=== PATIENT | female | born 1970 | race Caucasian/White ===

== ENCOUNTER 2024-04-30 14:31 | Emergency (ER) | payer OTHER, SELFPAY ==
--- NOTE | 2024-04-30 16:27 | ER ---
Nurse's Notes [facility] Name: Fabiola Johnson Age: 53 yrs Sex: Female : 1970 Arrival Date: 04/30/2024 Time: 14:31 Bed 11 Private MD: Diagnosis: Local infection of the skin and subcutaneous tissue, unspecified-thumb Presentation: 04/30 14:37 Chief complaint: Patient states: she was bending a plastic credit card a week ago and kc6 thinks she has a piece of plastic stuck in her right thumb. reports continued pain and swelling. Coronavirus screen: At this time, the client does not indicate any symptoms associated with coronavirus-19. Ebola Screen: No symptoms or risks identified at this time. Initial Sepsis Screen: Does the patient meet any 2 criteria? No. Patient's initial sepsis screen is negative. Does the patient have a suspected source of infection? No. Patient's initial sepsis screen is negative. Risk Assessment: Do you want to hurt yourself or someone else? Patient reports no desire to harm self or others. Onset of symptoms was April 30, 2024. 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 - Infectious Disease History:: Denies. - Social history:: Smoking status: Patient reports the use of cigarette tobacco products, smokes one-half pack cigarettes per day. Screenin:35 [facility] ED Fall Risk Assessment (Adult) History of falling in the last 3 months, me1 including since admission No falls in past 3 months (0 pts) Confusion or Disorientation No (0 pts) Intoxicated or Sedated No (0 pts) Impaired Gait No (0 pts) Mobility Assist Device Used No (0 pt) Altered Elimination No (0 pt) Score/Fall Risk Level 0 - 2 = Low Risk Maintained a safe environment, Provided non-skid footwear, Hourly rounding (assess needs \T\ fall precautionary measures) done. Abuse screen: Denies threats or abuse. Nutritional screening: No deficits noted. Tuberculosis screening: No symptoms or risk factors identified. Assessment: 16:35 General: Appears uncomfortable, slender, well developed, Behavior is calm, cooperative, me1 appropriate for age, Reports she was bending a plastic credit card a week ago and thinks she has a piece of plastic stuck in her right thumb. reports continued pain and swelling. Pain: Complains of pain in palmar aspect of distal phalanx of right thumb Pain does not radiate. Pain currently is 4 out of 10 on a pain scale. Quality of pain is described as tender, throbbing, Pain began gradually, Is continuous. Neuro: Level of Consciousness is awake, alert, obeys commands, Oriented to person, place, time, situation, Appropriate for age. Cardiovascular: Patient's skin is warm and dry. Respiratory: Airway is patent Respiratory effort is even, unlabored, Respiratory pattern is regular, symmetrical. GI: No signs and/or symptoms were reported involving the gastrointestinal system. : No signs and/or symptoms were reported regarding the genitourinary system. EENT: No signs and/or symptoms were reported regarding the EENT system. Derm: Bruising that is dark purple, on palmar aspect of distal phalanx of right thumb swelling to pad of right thumb with redness noted. Musculoskeletal: Reports pain in palmar aspect of distal phalanx of right thumb. Injury Description: she was bending a plastic credit card a week ago and thinks she has a piece of plastic stuck in her right thumb. reports continued pain and swelling. Vital Signs: 14:37 BP 124 / 85; Pulse 74; Resp 17 S; Temp 97.3(TE); Pulse Ox 100% on R/A; Weight 47.63 kg kc6 (R); Height 5 ft. 3 in. (R); Pain 9/10; 16:46 BP 126 / 74; Pulse 68; Resp 15; Temp 98.3; Pulse Ox 100% ; me1 14:37 Body Mass Index 18.60 (47.63 kg, 160.02 cm) kc6 14:37 Pain Scale: Adult kc ED Course: 14:35 Patient arrived in ED. mg5 14:36 Romy Carvajal FNP-C is [facility]. kb 14:36 Bassam Bernal DO is Attending Physician. kb 14:40 Triage completed. kc6 14:40 Arm band placed on. kc6 15:05 Hand Right 3 View XRAY In Process Unspecified. EDMS 16:20 Patient placed in an exam room, on a stretcher. ll1 16:31 Jerilyn Miller, RN is Primary Nurse. me1 16:35 Patient has correct armband on for positive identification. Bed in low position. Call me1 light in reach. Provided Education on: POC. Verbalized understanding. . 16:35 No provider procedures requiring assistance completed. Patient did not have IV access me1 during this emergency room visit. Administered Medications: 16:35 Drug: Cephalexin PO 500 mg PO once Route: PO; me1 16:46 Follow up: Response: No adverse reaction me1 16:35 Drug: Doxycycline PO 100 mg PO once Route: PO; me1 16:46 Follow up: Response: No adverse reaction me1 Medication: 16:35 VIS not applicable for this client. me1 Outcome: 16:27 Discharge ordered by MD. kb 16:47 Discharged to home ambulatory, me1 16:47 Condition: stable 16:47 Discharge instructions given to patient, Instructed on discharge instructions, follow up and referral plans. medication usage, Demonstrated understanding of instructions, follow-up care, medications, Prescriptions given X 2, 16:47 Patient left the ED. me1 Signatures: Dispatcher [employer] [facility] Romy Carvajal FNP-C FNP-Cheryl Deshpande RN RN 1 Lynda Hair RN RN kc Jerilyn Miller RN RN ne1 [place] mg5 Corrections: (The following items were deleted from the chart) 16:35 14:37 Chief complaint: Patient states: she was bending a plastic credit card a week ago me1 and thinks she has a piece of plastic stuck in her right thumb. reports continued pain and swelling kc6
--- NOTE | 2024-04-30 16:28 | EDPHYS ---
Physician Documentation [facility] Name: Fabiola Johnson Age: 53 yrs Sex: Female : 1970 Arrival Date: 04/30/2024 Time: 14:31 Bed 11 Private MD: ED Physician Bassam Bernal HPI: 04/30 14:43 This 53 yrs old Female presents to ER via Ambulatory with complaints of Thumb Injury - kb Swelling. 14:43 Pt is a 53 year old female who presents for swelling, redness and pain to right thumb kb that started about a week ago when she broke a plastic card and it cut her. States she believes a piece of the card got stuck in her finger and is still there. . 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 - Infectious Disease History:: Denies. - Social history:: Smoking status: Patient reports the use of cigarette tobacco products, smokes one-half pack cigarettes per day. ROS: 14:42 Constitutional: As per HPI kb Exam: 14:42 Constitutional: This is a well developed, well nourished patient who is awake, alert, kb and in no acute distress. Head/Face: Normocephalic, atraumatic. ENT: Moist Mucous membranes Cardiovascular: Regular rate Respiratory: Respirations even and unlabored. No increased work of breathing. Talking in full sentences Abdomen/GI: Soft, non-tender. No distention MS/ Extremity: Pulses equal, no cyanosis. Neurovascular intact. Full, normal range of motion. Neuro: Awake and alert, GCS 15, oriented to person, place, time, and situation. Moves all extremities. Normal gait. 14:42 Skin: swelling and erythema to pad of right thumb. Vital Signs: 14:37 BP 124 / 85; Pulse 74; Resp 17 S; Temp 97.3(TE); Pulse Ox 100% on R/A; Weight 47.63 kg kc6 (R); Height 5 ft. 3 in. (R); Pain 9/10; 16:46 BP 126 / 74; Pulse 68; Resp 15; Temp 98.3; Pulse Ox 100% ; me1 14:37 Body Mass Index 18.60 (47.63 kg, 160.02 cm) [facility] 14:37 Pain Scale: Adult kc6 MDM: 14:36 Patient medically screened. kb 14:42 Data reviewed: vital signs, nurses notes. kb 16:26 Differential diagnosis: abscess, cellulitis, FB. Counseling: I had a detailed kb discussion with the patient and/or guardian regarding the historical points, exam findings, and any diagnostic results supporting the discharge/admit diagnosis, radiology results, the need for outpatient follow up, a family practitioner, to return to the emergency department if symptoms worsen or persist or if there are any questions or concerns that arise at home. 16:26 ED course: No drainable abscess appreciated. Educated to take antibiotics, on return kb precautions and need for follow up with hand surgeon is symptoms do not improve. 04/30 14:38 Order name: Hand Right 3 View XRAY kb Administered Medications: 16:35 Drug: Cephalexin PO 500 mg PO once Route: PO; me1 16:46 Follow up: Response: No adverse reaction me1 16:35 Drug: Doxycycline PO 100 mg PO once Route: PO; me1 16:46 Follow up: Response: No adverse reaction me1 Disposition: 18:48 I was immediately available on-site in the Emergency Department for consultation in the ms3 care of the patient. Disposition Summary: 04/30/24 16:27 Discharge Ordered Notes: Location: Home kb Condition: Stable kb Diagnosis - Local infection of the skin and subcutaneous tissue, unspecified - thumb kb Followup: kb - With: Emergency Department - When: As needed - Reason: Worsening of condition Followup: kb - With: Private Physician - When: 2 - 3 days - Reason: Recheck today's complaints, Continuance of care, Re-evaluation by your physician Discharge Instructions: - Discharge Summary Sheet kb - Wound Infection, [id number] kb Forms: - Medication Reconciliation Form kb - Antibiotic Education kb - Prescription Opioid Use kb - Patient Portal Instructions kb - Leadership Thank You Letter kb Prescriptions: - Cephalexin 500 mg Oral Capsule - take 1 capsule ORAL route every 8 hours for 10 days; 30 capsule; Refills: 0, kb Product Selection Permitted - Doxycycline Hyclate 100 mg Oral Tablet - take 1 tablet ORAL route every 12 hours; 20 tablet; Refills: 0, Product kb Selection Permitted Signatures: Dispatcher [employer] Romy Jacobs, BHARGAVI-Rodrick UTILITY BAG ASSEMBLER-Bassam Mendoza DO DO ms3 Lynda Hair RN RN kc6 Jerilyn Miller RN RN me1 Corrections: (The following items were deleted from the chart) 14:38 14:38 Hand Right 3 View+[id number] ordered. EDMS EDMS
[2024-04-30] MEDS ORDERED: CEPHALEXIN 250 MG CAP ONE (16:33)
[2024-04-30] MEDS ORDERED: DOXYCYCLINE 100 MG CAP PO ONE (16:33)
[2024-04-30 17:01] VITALS: O2SAT 100
[2024-04-30 17:03] VITALS: BP 126/74; TEMP 98.3
--- NOTE | 2024-04-30 18:15 | RAD REPORT ---
EXAM DESCRIPTION: RAD - Hand Right 3 View - 04/30/2024 3:03 pm CLINICAL HISTORY: Right hand pain status post injury FINDINGS: No fracture or dislocation is seen. No bone or joint noted Due to technical issues the exam could not be dictated until now. A preliminary report was given to the emergency room
== END 2024-04-30 16:47 | disposition home or self-care (01) ==
LOC: ER 14:31
DX: L08.9 Local infection of the skin and subcutaneous tissue, unspecified (principal); F17.210 Nicotine dependence, cigarettes, uncomplicated
CPT/HCPCS: 99283